=== PATIENT | female | born 1990 | race Caucasian/White ===

== ENCOUNTER 2018-11-13 07:59 | Outpatient (CLI) | payer OTHER ==
[~2018-11-13] VITALS: Ht 167.6 cm; Wt 78.1 kg
[2018-11-13] MEDS ORDERED: PRENTAB9 PO (08:24)
[2018-11-13] MEDS ORDERED: LEVO125T4 PO (08:24)
[2018-11-13 08:28] VITALS: BP 97/53
[2018-11-13] MEDS ORDERED: BETAMETHASONE SOLUSPAN 6MG/ML INJ 5ML (J0702) IM SCH (09:30)
[2018-11-13 11:28] VITALS: BP 106/51
[2018-11-13] MEDS ORDERED: TERBUTALINE SULFATE 1 MG/ML VIAL (J3105) As Ordered ONE (14:33)
[2018-11-13 14:38] VITALS: BP 122/58
[2018-11-13] MEDS ORDERED: TERBUTALINE SULFATE 1 MG/ML VIAL (J3105) SC ONE (14:45)
--- NOTE | 2018-11-13 15:18 | HPE ---
DATE OF ADMISSION: 11/13/2018 REASON FOR PRESENTATION: Contractions. HISTORY OF PRESENT ILLNESS Mrs. Bergman is a 28-year-old 3, para 1 who presents at 34 weeks 4 days estimated gestational age with complaints of contractions. She reports contractions that started overnight, that have increased in intensity as well as frequency. She reports active movement. Denies any vaginal bleeding or leakage of fluid. This is a patient of a [facility] who was instructed to present to [facility] for evaluation for labor. Her course reportedly has been uncomplicated. PAST SURGICAL HISTORY None. PAST MEDICAL HISTORY Hyperthyroidism. OBSTETRICAL HISTORY She has had one delivery at 36 weeks. MEDICATIONS Includes vitamins and levothoroxine. ALLERGIES SULFA. SOCIAL HISTORY Denies any alcohol, tobacco or drug use during her . PHYSICAL EXAMINATION Vital signs: Stable. She is afebrile. She has a category one rate tracing with contractions on tocometer. General appearance: Well appearing, no acute distress. Lungs: Clear to auscultation bilaterally. Cardiovascular: Heart regular rate and rhythm. Abdomen is gravid, nontender. Cervical examination: She is 1 cm dilated, 25% effaced, station was high. There was some bloody show. Bedside ultrasound was performed demonstrating cephalic presentation, adequate amniotic fluid. ASSESSMENT: 1. Mrs. Bergman is a 28-year-old 2, para 1 at 34 weeks 4 days estimated gestational age with contractions. 2. History of delivery. 3. Reassuring status. PLAN: 1. Continue to monitor. 2. Steroids for lung maturity. 3. Reassessment within 4 hours. I discussed these findings with the couple. I reviewed plan of care and all questions have been answered. The patient verbalized understanding and agrees with plan of care. STEPH
[2018-11-13 16:53] VITALS: BP 121/57
[2018-11-14] MEDS ORDERED: MAPA500T2 PO (10:29)
== END 2018-11-13 18:07 | disposition home or self-care (01) ==
LOC: M LDO 07:59
PROVIDERS: ATTEND Obstetrics & Gynecology
DX: O47.03 False labor before 37 completed weeks of gestation, third trimester (principal); Z3A.34 34 weeks gestation of pregnancy; Z87.51 Personal history of pre-term labor; O99.283 Endocrine, nutritional and metabolic diseases complicating pregnancy, third trimester; E05.90 Thyrotoxicosis, unspecified without thyrotoxic crisis or storm
CPT/HCPCS: 59025; 96372; J0702; J3105

== ENCOUNTER 2018-11-14 10:07 | Outpatient (CLI) | payer OTHER ==
[~2018-11-14] VITALS: Ht 167.6 cm; Wt 78.0 kg
[~2018-11-14 10:07] MED LIST: LEVO125T4 PO; PRENTAB9 PO
[2018-11-14 10:23] VITALS: BP 114/59
[2018-11-14] MEDS ORDERED: MAPA500T2 PO (10:29)
[2018-11-14] MEDS ORDERED: BETAMETHASONE SOLUSPAN 6MG/ML INJ 5ML (J0702) IM ONE (10:30)
--- NOTE | 2018-11-14 10:56 | IPNPDOC ---
Text Note Date of Service The patient was seen on 11/14/18. NOTE 28yo G [id number] CLARITA 12/22/18. Presents @ 34w5d for 2nd betamethasone injection due to threatened PTL yesterday. Hx significant for previous delivery @ 36wks. Pt see's [facility], Robyn, care has been appropriate NAD, reports UC are mild and more sporadic than yesterday Denies bleeding or LOF. Fetus is active Cat I tracing today, No UC noted on monitor Discharged home. Routine precautions reviewed Pt instructed to keep next appt with [facility] A-FIB/CHADSVASC A-FIB History Current/History of A-Fib/PAF?: No VS,Fishbone, I+O VS, Fishbone, I+O Vital Signs Date Time Temp Pulse Resp B/P (MAP) Pulse Ox O2 Delivery O2 Flow Rate FiO2 11/14/18 10:23 98.3 80 18 114/59 (77) Kaylynn Garcia CNM November 14, 2018 10:56
== END 2018-11-14 11:08 | disposition home or self-care (01) ==
LOC: M LDO 10:07
PROVIDERS: ATTEND Advanced Practice Midwife
DX: O26.893 Other specified pregnancy related conditions, third trimester (principal); Z3A.34 34 weeks gestation of pregnancy; Z87.51 Personal history of pre-term labor
CPT/HCPCS: 96372; J0702

== ENCOUNTER → 2024-04-03 | Outpatient (REF) | payer OTHER ==
[~2024-04-03] MED LIST changes: +MAPA500T2 PO
== END ==
LOC: M LABDRWAD 12:37
PROVIDERS: ATTEND Nurse Practitioner Family
DX: R12 Heartburn (principal); R19.4 Change in bowel habit